=== PATIENT | male | born 1980 | race Caucasian/White ===

== ENCOUNTER → 2019-06-01 | Outpatient (CLI) | payer OTHER | LOC: M LABSMTC 13:23 | PROVIDERS: ATTEND Family Medicine | DX: Z11.59 Encounter for screening for other viral diseases (principal); Z20.828 Contact with and (suspected) exposure to other viral communicable diseases ==

== ENCOUNTER → 2021-12-24 | Outpatient (CLI) | payer OTHER ==
[2021-12-24 18:10] LABS: BASO # 0.1 10^3/uL (0.0-0.2); BASO % 0.5 % (0.0-1.0); EOS # 0.2 10^3/uL (0.0-0.5); EOS % 1.9 % (0.0-3.0); HEMATOCRIT 46.7 % (42.0-52.0); HEMOGLOBIN 15.9 g/dl (13.5-17.5); LYMPH # 2.5 10^3/uL (1.5-5.0); LYMPH % 19.2 % (24.0-44.0); MEAN CORPUSCULAR HEMOGLOBIN 29.4 pg (27.0-33.0); MEAN CORPUSCULAR VOLUME 86.3 fl (80.0-96.0); MONO # 1.2 10^3/uL (0.0-0.8); MONO % 9.5 % (2.0-8.0); NEUTROPHILS # 8.7 10^3/uL (1.5-8.5); NEUTROPHILS % 68.1 % (36.0-66.0); PLATELET COUNT, AUTOMATED 305 10^3/uL (150-450); RED BLOOD COUNT 5.41 10^6/uL (4.30-6.10); WHITE BLOOD COUNT 12.8 10^3/uL (4.0-10.0)
[2021-12-24 19:47] LABS: ALBUMIN 4.2 GM/DL (3.2-5.2); ALT/SGPT 47 U/L (12-78); BILIRUBIN,TOTAL 1.5 MG/DL (0.2-1.0); BLOOD UREA NITROGEN 16 MG/DL (7-18); CALCIUM LEVEL 9.4 MG/DL (8.5-10.1); CARBON DIOXIDE LEVEL 27 MEQ/L (21-32); CHLORIDE LEVEL 104 MEQ/L (98-107); CREATININE FOR GFR 1.01 MG/DL (0.70-1.30); GLOMERULAR FILTRATION RATE > 60.0 (>60); GLUCOSE, FASTING 107 MG/DL (70-100); POTASSIUM SERUM 4.3 MEQ/L (3.5-5.1); SODIUM LEVEL 138 MEQ/L (136-145); TOTAL PROTEIN 8.1 GM/DL (6.4-8.2)
== END ==
LOC: M PLAIMG 16:03
PROVIDERS: ATTEND Nurse Practitioner Adult Health
DX: U09.9 Post COVID-19 condition, unspecified (principal)

== ENCOUNTER → 2022-03-10 | Outpatient (CLI) | payer BC ==
[2022-03-10 10:43] LABS: BASO # 0.1 10^3/uL (0.0-0.2); BASO % 0.8 % (0.0-1.0); EOS # 0.3 10^3/uL (0.0-0.5); EOS % 3.3 % (0.0-3.0); HEMATOCRIT 47.8 % (42.0-52.0); HEMOGLOBIN 16.2 g/dl (13.5-17.5); LYMPH # 2.1 10^3/uL (1.5-5.0); LYMPH % 20.8 % (24.0-44.0); MEAN CORPUSCULAR HEMOGLOBIN 29.6 pg (27.0-33.0); MEAN CORPUSCULAR HGB CONC 33.9 g/dl (32.0-36.5); MEAN CORPUSCULAR VOLUME 87.4 fl (80.0-96.0); MONO % 10.2 % (2.0-8.0); NEUTROPHILS # 6.3 10^3/uL (1.5-8.5); PLATELET COUNT, AUTOMATED 276 10^3/uL (150-450); RED BLOOD COUNT 5.47 10^6/uL (4.30-6.10)
[2022-03-10 11:10] LABS: ERYTHROCYTE SEDIMENTATION RATE 27 mm/hr (0-15)
[2022-03-10 11:15] LABS: ALBUMIN 4.1 G/DL (3.2-5.2); ALKALINE PHOSPHATASE 72 U/L (46-116); ALT/SGPT 86 U/L (7.0-40); AST/SGOT 39 U/L (<34); BILIRUBIN,TOTAL 1.7 MG/DL (0.3-1.2); BLOOD UREA NITROGEN 17 MG/DL (9-23); CALCIUM LEVEL 9.8 MG/DL (8.5-10.1); CARBON DIOXIDE LEVEL 32 MMOL/L (20-31); CHLORIDE LEVEL 102 MMOL/L (98-107); CREATININE FOR GFR 1.07 MG/DL (0.70-1.30); GLOMERULAR FILTRATION RATE > 60.0 (>60); GLUCOSE, FASTING 93 MG/DL (60-100); POTASSIUM SERUM 4.9 MMOL/L (3.5-5.1); SODIUM LEVEL 140 MMOL/L (136-145); TOTAL PROTEIN 7.8 G/DL (5.7-8.2)
== END ==
LOC: M PLALAB 08:54
PROVIDERS: ATTEND Nurse Practitioner Adult Health
DX: R05.3 Chronic cough (principal)

== ENCOUNTER → 2022-03-17 | Outpatient (CLI) | payer BC ==
[~2022-03-17] MED LIST: ISOVUE-370 76% 100ML VIAL As Ordered ONE
== END ==
LOC: M RAD 11:17
PROVIDERS: ATTEND Nurse Practitioner Adult Health
DX: R91.8 Other nonspecific abnormal finding of lung field (principal)

== ENCOUNTER → 2022-04-21 | Outpatient (CLI) | payer BC | LOC: M PLAIMG 09:38 | PROVIDERS: ATTEND Nurse Practitioner Adult Health | DX: H92.02 Otalgia, left ear (principal) ==

== ENCOUNTER → 2022-08-18 | Outpatient (CLI) | payer BC ==
[~2022-08-18] MED LIST changes: -ISOVUE-370 76% 100ML VIAL As Ordered ONE; +METHACHOLINE KIT INH ONE
== END ==
LOC: M CARPUL 14:16
PROVIDERS: ATTEND Internal Medicine Pulmonary Disease
DX: R06.02 Shortness of breath (principal)

== ENCOUNTER → 2023-02-04 | Outpatient (CLI) | payer BC | LOC: M PLAIMG 12:42 | PROVIDERS: ATTEND Nurse Practitioner Adult Health | DX: M26.603 Bilateral temporomandibular joint disorder, unspecified (principal) ==

== ENCOUNTER → 2024-03-23 | Outpatient (CLI) | payer BC ==
[2024-03-23 14:12] LABS: BASO # 0.1 10^3/uL (0.0-0.2); BASO % 0.7 % (0.0-1.0); EOS # 0.3 10^3/uL (0.0-0.5); EOS % 3.1 % (0.0-3.0); HEMATOCRIT 47.1 % (42.0-52.0); HEMOGLOBIN 15.9 g/dl (13.5-17.5); LYMPH % 19.2 % (24.0-44.0); MEAN CORPUSCULAR HEMOGLOBIN 29.4 pg (27.0-33.0); MEAN CORPUSCULAR HGB CONC 33.8 g/dl (32.0-36.5); MEAN CORPUSCULAR VOLUME 87.1 fl (80.0-96.0); MONO # 1.1 10^3/uL (0.0-0.8); MONO % 10.3 % (2.0-8.0); NEUTROPHILS # 6.7 10^3/uL (1.5-8.5); NEUTROPHILS % 64.8 % (36.0-66.0); PLATELET COUNT, AUTOMATED 297 10^3/uL (150-450); RED BLOOD COUNT 5.41 10^6/uL (4.30-6.10); WHITE BLOOD COUNT 10.4 10^3/uL (4.0-10.0)
[2024-03-23 14:32] LABS: ALBUMIN 4.1 G/DL (3.2-5.2); ALKALINE PHOSPHATASE 55 U/L (40-129); ALT/SGPT 41 U/L (7.0-40); AST/SGOT 16 U/L (<34); BILIRUBIN,TOTAL 1.8 MG/DL (0.3-1.2); BLOOD UREA NITROGEN 20 MG/DL (9-23); CALCIUM LEVEL 9.4 MG/DL (8.5-10.1); CARBON DIOXIDE LEVEL 30 MMOL/L (20-31); CHLORIDE LEVEL 105 MMOL/L (98-107); CHOLESTEROL LEVEL 183 MG/DL (<200); CHOLESTEROL RISK RATIO 3.88 (<5); CREATININE FOR GFR 0.84 MG/DL (0.70-1.30); GLOMERULAR FILTRATION RATE > 60.0 (>60); GLUCOSE, FASTING 92 MG/DL (60-100); HDL CHOLESTEROL 47.1 MG/DL (>40); LDL CHOLESTEROL 120.9 MG/DL (<100); NON-HDL-C 135.9 MG/DL; POTASSIUM SERUM 4.5 MMOL/L (3.5-5.1); SODIUM LEVEL 143 MMOL/L (136-145); TOTAL PROTEIN 7.6 G/DL (5.7-8.2); TRIGLYCERIDES LEVEL 75 MG/DL (<150)
[2024-03-23 14:34] LABS: FREE T4 1.53 NG/DL (0.89-1.76)
== END ==
LOC: M PLALAB 09:36
PROVIDERS: ATTEND Nurse Practitioner Adult Health
DX: R07.81 Pleurodynia (principal)